=== PATIENT | female | born 1980 | race Caucasian/White ===

== ENCOUNTER 2020-09-27 12:00 | Inpatient (IN) | payer OTHER ==
[2020-09-27 12:43] LABS: BASO % 0.8 % (0-2.0); EOS % 1.6 % (0-4.5); HEMATOCRIT 33.6 % (32.4-45.2); HEMOGLOBIN 11.2 GM/dL (10.7-15.3); LYMPH % 14.1 % (8-40); MCH 30.1 pg (25.7-33.7); MCHC 33.5 g/dl (32.0-36.0); MEAN CELL VOLUME 89.9 fl (80-96); MEAN PLT VOLUME 9.1 fl (7.5-11.1); MONO % 7.2 % (3.8-10.2); NEUT % 76.3 % (42.8-82.8); PLATELET COUNT 228 K/MM3 (134-434); RBC 3.73 M/mm3 (3.60-5.2); RDW 13.9 % (11.6-15.6); WHITE BLOOD COUNT 12.7 K/mm3 (4.0-10.0)
[2020-09-27 12:50] LABS: INR 1.01 (0.83-1.09); PROTHROMBIN TIME (PATIENT) 12.2 SEC (9.7-13.0)
[2020-09-27 12:53] LABS: ACTIVATED PTT 28.5 SECONDS (25.2-36.5)
[2020-09-27 13:04] LABS: CALCIUM 8.9 mg/dL (8.5-10.1)
[2020-09-27 13:05] LABS: ALBUMIN 2.8 g/dl (3.4-5.0); BLOOD UREA NITROGEN 8.8 mg/dL (7-18)
[2020-09-27 13:08] LABS: CREATININE 0.5 mg/dL (0.55-1.3)
[2020-09-27 13:09] LABS: BILIRUBIN,TOTAL 0.3 mg/dL (0.2-1); TOT PROT 6.8 g/dl (6.4-8.2)
[2020-09-27 14:01] VITALS: BMI 33.5
[2020-09-27] MEDS ORDERED: CITRIC ACID/SODIUM CITRATE 30 ML UNIT-DOSE CUP PO ONE (14:45)
[2020-09-27] MEDS ORDERED: ELECTROLYTE-148 SOLN 500 ML IV SCH (14:45)
[2020-09-27] MEDS ORDERED: ELECTROLYTE-148 SOLN 1,000 ML IV SCH (15:15)
[2020-09-27] MEDS ORDERED: ceFAZolin SODIUM 1 GM VIAL ONE (16:05)
[2020-09-27] MEDS ORDERED: morphine SULFATE/PF 1 MG/2 ML (2cc Syringe - QUVA) ONE (16:05)
[2020-09-27] MEDS ORDERED: OXYTOCIN 20 UNITS in 0.9% NS 20 UNIT/1,000 ML INFUS.BAG IV ONE ×3 (16:10→20:18)
[2020-09-27] MEDS ORDERED: OXYTOCIN 10 UNITS/ML VIAL ONE ×2 (17:29)
[2020-09-27 18:54] LABS: CORD BASE EXCESS -4.3 mmol/L (0-2); CORD HCO3 23.9 mmHg (20-29); CORD PCO2 56.5 mmHg (30-78); CORD pH 7.245 (7.14-7.44)
[2020-09-27 18:55] LABS: CORD BASE EXCESS -2.6 mmol/L (0-2); CORD HCO3 25.5 mmHg (20-29); CORD PCO2 57.2 mmHg (30-78); CORD pH 7.267 (7.14-7.44)
[2020-09-27] MEDS ORDERED: METHYLERGONOVINE MALEATE 0.2 MG/1 ML AMP IM PRN (19:29)
[2020-09-27] MEDS: IBUPROFEN 800 MG/8 ML IJ IVPB PRN (22:46)
[2020-09-28] MEDS: IBUPROFEN 800 MG/8 ML IJ IVPB PRN (06:05)
[2020-09-28 08:55] LABS: BASO % 0.3 % (0-2.0); EOS % 1.1 % (0-4.5); HEMATOCRIT 33.8 % (32.4-45.2); HEMOGLOBIN 10.9 GM/dL (10.7-15.3); LYMPH % 8.1 % (8-40); MCH 29.5 pg (25.7-33.7); MCHC 32.2 g/dl (32.0-36.0); MEAN CELL VOLUME 91.5 fl (80-96); MEAN PLT VOLUME 9.6 fl (7.5-11.1); MONO % 7.3 % (3.8-10.2); NEUT % 83.2 % (42.8-82.8); PLATELET COUNT 207 K/MM3 (134-434); RBC 3.69 M/mm3 (3.60-5.2); RDW 14.1 % (11.6-15.6); WHITE BLOOD COUNT 15.1 K/mm3 (4.0-10.0)
[2020-09-28] MEDS: SIMETHICONE 80 MG TAB.CHEW (FP) PO PRN ×4 (10:28→23:18)
[2020-09-28] MEDS: oxyCODONE HCL 5 MG TABLET PO PRN ×3 (10:28→23:19)
[2020-09-28] MEDS: IBUPROFEN 600 MG TABLET (FP) PO PRN ×3 (15:08→23:18)
[2020-09-28] MEDS ORDERED: LEVOTHYROXINE NA 50 MCG TABLET (FP) PO ONE (15:30)
[2020-09-28] MEDS ORDERED: BISACODYL 10 MG SUPP.RECT RC PRN (19:29)
[2020-09-28] MEDS: HEPARIN NA (PORCINE) 5,000 UNITS/ML 1ML VIAL SQ SCH (21:15)
[2020-09-29] MEDS: SIMETHICONE 80 MG TAB.CHEW (FP) PO PRN ×4 (04:11→20:32)
[2020-09-29] MEDS: IBUPROFEN 600 MG TABLET (FP) PO PRN ×3 (04:12→14:51)
[2020-09-29] MEDS: oxyCODONE HCL 5 MG TABLET PO PRN ×4 (04:12→20:29)
[2020-09-29] MEDS ORDERED: DIPHTH,PERTUSS(ACELL),TET 0.5 ML DISP.SYRIN IM ONE (10:00)
[2020-09-29] MEDS: HEPARIN NA (PORCINE) 5,000 UNITS/ML 1ML VIAL SQ SCH ×2 (10:20→22:06)
[2020-09-29] MEDS: LEVOTHYROXINE NA 50 MCG TABLET (FP) PO SCH (14:51)
[2020-09-30] MEDS: LEVOTHYROXINE NA 50 MCG TABLET (FP) PO SCH (06:44)
[2020-09-30] MEDS: oxyCODONE HCL 5 MG TABLET PO PRN ×4 (06:50→21:32)
[2020-09-30] MEDS: IBUPROFEN 600 MG TABLET (FP) PO PRN ×3 (10:26→21:31)
[2020-09-30] MEDS: SIMETHICONE 80 MG TAB.CHEW (FP) PO PRN ×3 (10:28→21:31)
[2020-09-30] MEDS: HEPARIN NA (PORCINE) 5,000 UNITS/ML 1ML VIAL SQ SCH ×2 (10:31→21:31)
[2020-09-30 17:10] LABS: HEMATOCRIT 32.3 % (32.4-45.2); HEMOGLOBIN 10.5 GM/dL (10.7-15.3); LYMPH % 23.9 % (8-40); MCH 29.9 pg (25.7-33.7); MCHC 32.6 g/dl (32.0-36.0); MEAN CELL VOLUME 91.5 fl (80-96); MEAN PLT VOLUME 9.1 fl (7.5-11.1); MONO % 9.3 % (3.8-10.2); NEUT % 60.8 % (42.8-82.8); PLATELET COUNT 238 K/MM3 (134-434); RBC 3.52 M/mm3 (3.60-5.2); RDW 13.9 % (11.6-15.6); WHITE BLOOD COUNT 9.9 K/mm3 (4.0-10.0)
[2020-10-01] MEDS: IBUPROFEN 600 MG TABLET (FP) PO PRN ×3 (01:37→13:16)
[2020-10-01] MEDS: oxyCODONE HCL 5 MG TABLET PO PRN ×2 (01:37→06:43)
[2020-10-01] MEDS: SIMETHICONE 80 MG TAB.CHEW (FP) PO PRN ×3 (01:37→13:16)
[2020-10-01] MEDS: LEVOTHYROXINE NA 50 MCG TABLET (FP) PO SCH (06:42)
[2020-10-01] MEDS: HEPARIN NA (PORCINE) 5,000 UNITS/ML 1ML VIAL SQ SCH (09:33)
[2020-10-01 10:56] VITALS: BP 108/61; PULSE 83; TEMP 97.6
== END 2020-10-01 18:20 | disposition home or self-care (01) | DRG 540 ==
LOC: JLDR 12:00 → J3W 21:59
PROVIDERS: ADMIT Obstetrics & Gynecology Maternal & Fetal Medicine; ATTEND Obstetrics & Gynecology Maternal & Fetal Medicine
PROC: 10D00Z1 Extraction of Products of Conception, Low, Open Approach (ICD-10-PCS; principal; 2020-09-27)
DX: O41.03X0 Oligohydramnios, third trimester, not applicable or unspecified (principal); O60.14X0 Preterm labor third trimester with preterm delivery third trimester, not applicable or unspecified; O24.420 Gestational diabetes mellitus in childbirth, diet controlled; O99.284 Endocrine, nutritional and metabolic diseases complicating childbirth; E03.9 Hypothyroidism, unspecified; O32.1XX0 Maternal care for breech presentation, not applicable or unspecified; O34.219 Maternal care for unspecified type scar from previous cesarean delivery; Z3A.35 35 weeks gestation of pregnancy; Z37.0 Single live birth; Z91.018 Allergy to other foods
CPT/HCPCS: 36415; 36600; 80048; 80053; 82803; 85025; 85610; 85730; 86762; 86780; 86850; 86900; 86901; 87340; 87389; 88307-TC; 90715; C9803; J1644; U0003